=== PATIENT | male | born 1950 | race Caucasian/White ===

== ENCOUNTER 2017-03-11 13:08 | Outpatient (CLI) | payer MEDICARE ==
[2017-03-11 18:45] LABS: BASOPHILS % (AUTO) 0.3 %; HGB - HEMOGLOBIN 14.5 g/dL (14.0-18.0); LYMPHOCYTES # (AUTO) 0.9 10^3/uL (1.5-3.5); MEAN CORPUSCULAR HEMOGLOBIN 30.9 pg (27.0-31.0); MEAN CORPUSCULAR HGB CONC 32.8 g/dL (32.0-36.0); MEAN CORPUSCULAR VOLUME 94.3 fL (80.0-94.0); MEAN PLATELET VOLUME 10.8 fL (7.4-11.4); MONOCYTES # (AUTO) 0.3 10^3/uL (0.0-1.0); MONOCYTES % (AUTO) 3.3 %; NEUTROPHILS # (AUTO) 8.2 10^3/uL (1.5-6.6); NEUTROPHILS % (AUTO) 86.4 %; PLT - PLATELET COUNT 131 10^3/uL (130-450); RED BLOOD COUNT 4.68 10^6/uL (4.70-6.10); RED CELL DISTRIBUTION WIDTH 13.4 % (12.0-15.0); WHITE BLOOD COUNT 9.5 x10^3/uL (4.8-10.8)
[2017-03-11 19:11] LABS: ALBUMIN 4.3 g/dL (3.2-5.5); ALBUMIN/GLOBULIN RATIO 1.5 (1.0-2.2); BILIRUBIN,TOTAL 1.1 mg/dL (0.2-1.0); CALCIUM 9.2 mg/dL (8.5-10.3); CREATININE 1.4 mg/dL (0.6-1.2); TOTAL PROTEIN 7.2 g/dL (6.7-8.2)
== END 2017-03-11 13:09 | disposition home or self-care (01) ==
LOC: LAB.WCP 13:08
PROVIDERS: ATTEND Physician Assistant Medical
DX: N20.0 Calculus of kidney (principal)
CPT/HCPCS: 36415; 80053; 85025

== ENCOUNTER 2017-03-17 08:00 | Outpatient (CLI) | payer MEDICARE | END 2017-03-17 23:59 | disposition home or self-care (01) | LOC: LAB.WCP 08:00 | PROVIDERS: ATTEND Family Medicine | DX: Z53.9 Procedure and treatment not carried out, unspecified reason (principal) | CPT/HCPCS: 82570; 84133 ==

== ENCOUNTER → 2017-03-17 | Outpatient (CLI) | payer MEDICARE | LOC: LAB.WCP 12:22 | PROVIDERS: ATTEND Family Medicine | DX: N20.0 Calculus of kidney (principal) | CPT/HCPCS: 81599; 82340; 82507; 82570; 83945; 84133; 84300 ==

== ENCOUNTER 2017-03-18 08:00 | Outpatient (CLI) | payer MEDICARE ==
[2017-03-18 19:24] LABS: CALCIUM 8.7 mg/dL (8.5-10.3); CREATININE 1.1 mg/dL (0.6-1.2)
== END 2017-03-18 08:01 | disposition home or self-care (01) ==
LOC: LAB.WCP 08:00
PROVIDERS: ATTEND Family Medicine
DX: N20.0 Calculus of kidney (principal)
CPT/HCPCS: 36415; 80048; 81599; 82340; 82507; 82570; 83945; 84133; 84300

== ENCOUNTER 2017-05-17 23:44 | Outpatient (CLI) | payer MEDICARE | END 2017-05-17 23:45 | disposition home or self-care (01) | LOC: LAB.R 23:44 | PROVIDERS: ATTEND Physician Assistant Medical | DX: N20.0 Calculus of kidney (principal) | CPT/HCPCS: 81599; 82365 ==

== ENCOUNTER 2017-09-04 07:56 | Outpatient (CLI) | payer MEDICARE ==
--- NOTE | 2017-09-04 16:54 | Ultrasound Report ---
Procedure Date: 09/04/2017 Accession Number: [id number] / [id number] Procedure: US - Abdomen Limited CPT Code: FULL RESULT: EXAM: ABDOMEN ULTRASOUND LIMITED, RIGHT UPPER QUADRANT. EXAM DATE: 09/04/2017 08:58 AM. CLINICAL HISTORY: Fatty liver disease. COMPARISON: 01/30/2011. TECHNIQUE: Real-time scanning was performed with static images obtained. FINDINGS: Liver: Diffuse increased echogenicity again demonstrated, consistent with fatty infiltration. 1.6 cm right lobe benign cyst demonstrated. No evidence of mass. Normal size, 16.1 cm. Main portal vein flow: Hepatopetal. Gallbladder: Surgically absent. Biliary System: CBD measures 7.7 mm, previously 7.4. This is likely within normal range given the age and prior cholecystectomy. No definite intrahepatic or extrahepatic ductal dilatation. Other: No free fluid demonstrated. 2.9 cm right lower pole renal simple cyst, previously 2.7 cm. IMPRESSION: 1. No acute abnormality demonstrated. 2. Pattern compatible with diffuse fatty infiltration of the liver redemonstrated. 3. Benign right hepatic and right renal cysts. 4. Status post cholecystectomy. RADIA
== END 2017-09-04 07:57 | disposition home or self-care (01) ==
LOC: DI 07:56
PROVIDERS: ATTEND Family Medicine
DX: K76.0 Fatty (change of) liver, not elsewhere classified (principal); K76.89 Other specified diseases of liver; Q61.01 Congenital single renal cyst
CPT/HCPCS: 76705

== ENCOUNTER 2017-10-28 08:00 | Outpatient (CLI) | payer MEDICARE ==
[2017-10-28 13:17] LABS: ALBUMIN 4.3 g/dL (3.2-5.5); ALBUMIN/GLOBULIN RATIO 1.4 (1.0-2.2); ALKALINE PHOSPHATASE 93 IU/L (42-121); ALT ALANINE AMINOTRANSFERASE 34 IU/L (10-60); AST ASPARTATE AMINOTRANSFERASE 32 IU/L (10-42); BILIRUBIN,TOTAL 1.4 mg/dL (0.2-1.0); BUN - BLOOD UREA NITROGEN 20 mg/dL (6-20); CHOL/HDL RATIO 2.7 (<5.0); CHOLESTEROL 149 mg/dL; CREATININE 1.1 mg/dL (0.6-1.2); GFR - MDRD 67 (>89); HDL CHOLESTEROL 56 mg/dL; LDL CHOLESTEROL,CALCULATED 74 mg/dL; LDL/HDL RATIO 1.3 (<3.6); TOTAL PROTEIN 7.3 g/dL (6.7-8.2); URIC ACID 6.7 mg/dL (2.6-7.2); VLDL CHOLESTEROL 19 mg/dL
[2017-10-28 13:23] LABS: CALCIUM 9.2 mg/dL (8.5-10.3); CARBON DIOXIDE - CO2 29 mmol/L (21-32); CHLORIDE 100 mmol/L (101-111); GLUCOSE 109 mg/dL (70-100); SODIUM 138 mmol/L (135-145)
== END 2017-10-28 08:01 | disposition home or self-care (01) ==
LOC: LAB.WCP 08:00
PROVIDERS: ATTEND Family Medicine
DX: N20.0 Calculus of kidney (principal); E78.5 Hyperlipidemia, unspecified; Z12.5 Encounter for screening for malignant neoplasm of prostate
CPT/HCPCS: 36415; 80053; 80061; 84550; G0103; 83721; 84153

== ENCOUNTER 2018-07-18 09:37 | Outpatient (CLI) | payer MEDICARE ==
--- NOTE | 2018-07-18 11:01 | XRAY Report ---
Reason: KIDNEY STONE Procedure Date: 07/18/2018 Accession Number: [id number] / [id number] Procedure: XR - Abdomen 1 View X-Ray CPT Code: 17253 FULL RESULT: EXAM: ABDOMEN RADIOGRAPHY EXAM DATE: 07/18/2018 09:39 AM. CLINICAL HISTORY: Kidney stone. COMPARISON: None. TECHNIQUE: 1 view. FINDINGS: Bowel Gas Pattern: Within normal limits. No dilated loops. Other: A total of 4 calcific densities are seen in the region corresponding to the left kidney. These range in size from 0.4 to 0.8 cm. IMPRESSION: Suspect left renal calculi as described. RADIA
== END 2018-07-18 09:38 | disposition home or self-care (01) ==
LOC: DI 09:37
PROVIDERS: ATTEND Urology
DX: N20.0 Calculus of kidney (principal)
CPT/HCPCS: 74018

== ENCOUNTER 2018-11-23 08:00 | Outpatient (CLI) | payer MEDICARE ==
[2018-11-23 12:30] LABS: BASOPHILS % (AUTO) 0.6 %; EOSINOPHILS # (AUTO) 0.1 10^3/uL (0.0-0.7); EOSINOPHILS % (AUTO) 1.5 %; HGB - HEMOGLOBIN 13.3 g/dL (14.0-18.0); LYMPHOCYTES # (AUTO) 2.1 10^3/uL (1.5-3.5); LYMPHOCYTES % (AUTO) 32.2 %; MEAN CORPUSCULAR HEMOGLOBIN 32.4 pg (27.0-31.0); MEAN CORPUSCULAR HGB CONC 32.4 g/dL (32.0-36.0); MEAN PLATELET VOLUME 11.9 fL (7.4-11.4); MONOCYTES # (AUTO) 0.4 10^3/uL (0.0-1.0); MONOCYTES % (AUTO) 6.2 %; NEUTROPHILS # (AUTO) 3.9 10^3/uL (1.5-6.6); NEUTROPHILS % (AUTO) 58.9 %; PLT - PLATELET COUNT 147 10^3/uL (130-450); RED CELL DISTRIBUTION WIDTH 13.2 % (12.0-15.0); WHITE BLOOD COUNT 6.6 x10^3/uL (4.8-10.8)
[2018-11-23 12:35] LABS: ALBUMIN/GLOBULIN RATIO 1.2 (1.0-2.2); ALKALINE PHOSPHATASE 115 IU/L (42-121); ALT ALANINE AMINOTRANSFERASE 43 IU/L (10-60); AST ASPARTATE AMINOTRANSFERASE 41 IU/L (10-42); BUN - BLOOD UREA NITROGEN 16 mg/dL (6-20); CALCIUM 8.7 mg/dL (8.5-10.3); CARBON DIOXIDE - CO2 30 mmol/L (21-32); CHLORIDE 106 mmol/L (101-111); CHOL/HDL RATIO 2.3 (<5.0); CHOLESTEROL 140 mg/dL; GFR - MDRD 74 (>89); GLUCOSE 131 mg/dL (70-100); HDL CHOLESTEROL 62 mg/dL; LDL CHOLESTEROL,CALCULATED 63 mg/dL; SODIUM 142 mmol/L (135-145); TOTAL PROTEIN 7.3 g/dL (6.7-8.2); URIC ACID 4.5 mg/dL (2.6-7.2); VLDL CHOLESTEROL 15 mg/dL
== END 2018-11-23 23:59 | disposition home or self-care (01) ==
LOC: LAB.WCP 08:00
PROVIDERS: ATTEND Family Medicine
DX: N20.0 Calculus of kidney (principal); E88.81 Metabolic syndrome and other insulin resistance; K76.0 Fatty (change of) liver, not elsewhere classified; M10.9 Gout, unspecified; E78.5 Hyperlipidemia, unspecified
CPT/HCPCS: 36415; 80053; 80061; 83721; 84443; 84550; 85025

== ENCOUNTER 2020-01-30 08:26 | Outpatient (CLI) | payer MEDICARE ==
[2020-01-30 13:45] LABS: BASOPHILS % (AUTO) 0.5 %; EOSINOPHILS # (AUTO) 0.1 10^3/uL (0.0-0.7); HGB - HEMOGLOBIN 12.8 g/dL (14.0-18.0); LYMPHOCYTES % (AUTO) 30.5 %; MEAN CORPUSCULAR HEMOGLOBIN 31.5 pg (27.0-31.0); MEAN CORPUSCULAR HGB CONC 31.9 g/dL (32.0-36.0); MEAN CORPUSCULAR VOLUME 98.8 fL (80.0-94.0); MEAN PLATELET VOLUME 12.2 fL (7.4-11.4); MONOCYTES # (AUTO) 0.4 10^3/uL (0.0-1.0); MONOCYTES % (AUTO) 5.7 %; NEUTROPHILS % (AUTO) 60.7 %; PLT - PLATELET COUNT 137 10^3/uL (130-450); RED BLOOD COUNT 4.06 10^6/uL (4.70-6.10); RED CELL DISTRIBUTION WIDTH 12.9 % (12.0-15.0); WHITE BLOOD COUNT 6.6 x10^3/uL (4.8-10.8)
[2020-01-30 14:15] LABS: ALBUMIN 3.9 g/dL (3.2-5.5); ALBUMIN/GLOBULIN RATIO 1.2 (1.0-2.2); ALKALINE PHOSPHATASE 115 IU/L (42-121); ALT ALANINE AMINOTRANSFERASE 32 IU/L (10-60); AST ASPARTATE AMINOTRANSFERASE 32 IU/L (10-42); BILIRUBIN,TOTAL 0.9 mg/dL (0.2-1.0); BUN - BLOOD UREA NITROGEN 17 mg/dL (6-20); CARBON DIOXIDE - CO2 23 mmol/L (21-32); CHLORIDE 108 mmol/L (101-111); CHOL/HDL RATIO 2.2 (<5.0); CHOLESTEROL 138 mg/dL; CREATININE,URINE 122.3 mg/dL; GLUCOSE 156 mg/dL (70-100); HDL CHOLESTEROL 63 mg/dL; LDL CHOLESTEROL,CALCULATED 62 mg/dL; MICROALBUM/CREATININE RATIO,UR 4.1 ug/mg (<30.0); MICROALBUMIN,URINE 0.5 mg/dL (0-300.0); SODIUM 139 mmol/L (135-145); TOTAL PROTEIN 7.2 g/dL (6.7-8.2); VLDL CHOLESTEROL 13 mg/dL
[2020-01-30 14:26] LABS: HEMOGLOBIN A1c% 7.8 % (4.27-6.07)
== END 2020-01-30 23:59 | disposition home or self-care (01) ==
LOC: LAB.WCP 08:26
PROVIDERS: ATTEND Internal Medicine
DX: K76.0 Fatty (change of) liver, not elsewhere classified (principal); E88.81 Metabolic syndrome and other insulin resistance; Z12.5 Encounter for screening for malignant neoplasm of prostate; E78.5 Hyperlipidemia, unspecified
CPT/HCPCS: 36415; 80053; 80061; 82043; 82570; 83036; 84443; 85025; G0103; 83721; 84153

== ENCOUNTER 2020-05-01 08:00 | Outpatient (CLI) | payer MEDICARE ==
[2020-05-01 11:57] LABS: BILIRUBIN,URINE NEGATIVE (NEGATIVE); GLUCOSE, URINE (UA) NEGATIVE (NEGATIVE); KETONES,URINE (UA) NEGATIVE (NEGATIVE); LEUKOCYTE ESTERASE, URINE NEGATIVE (NEGATIVE); NITRITE,URINE NEGATIVE (NEGATIVE); OCCULT BLOOD,URINE NEGATIVE (NEGATIVE); PROTEIN,URINE NEGATIVE (NEGATIVE); UROBILINOGEN,URINE 0.2 (NORMAL) E.U./dL (NORMAL)
[2020-05-01 12:15] LABS: CLARITY,URINE CLEAR (CLEAR); CREATININE,URINE 148.8 mg/dL; MICROALBUMIN,URINE 0.6 mg/dL (0-300.0)
[2020-05-01 12:32] LABS: ESTIMATED AVERAGE GLUCOSE 148 mg/dL (70-100); HEMOGLOBIN A1c% 6.8 % (4.27-6.07)
[2020-05-01 12:39] LABS: PSA FREE 0.22 ng/mL (0.16-2.81); PSA TOTAL 2.51 ng/mL (0.000-2.000)
[2020-05-01 12:40] LABS: BUN - BLOOD UREA NITROGEN 16 mg/dL (6-20); CALCIUM 8.9 mg/dL (8.5-10.3); CARBON DIOXIDE - CO2 23 mmol/L (21-32); CHLORIDE 105 mmol/L (101-111); CHOL/HDL RATIO 2.3 (<5.0); CHOLESTEROL 130 mg/dL; CREATININE 0.8 mg/dL (0.6-1.2); GFR - MDRD 96 (>89); GLUCOSE 135 mg/dL (70-100); HDL CHOLESTEROL 56 mg/dL; LDL CHOLESTEROL,CALCULATED 58 mg/dL; POTASSIUM 3.8 mmol/L (3.5-5.0); SODIUM 136 mmol/L (135-145); TRIGLYCERIDES 79 mg/dL; URIC ACID 4.8 mg/dL (2.6-7.2); VLDL CHOLESTEROL 16 mg/dL
[2020-05-01 12:47] LABS: BACTERIA,URINE None Seen /HPF (None Seen); RBC,URINE 0-5 /HPF (0-5); SQUAMOUS EPITHELIAL CELL,UR NONE SEEN (<= Few); WBC,URINE 0-3 /HPF (0-3)
== END 2020-05-01 23:59 | disposition home or self-care (01) ==
LOC: LAB.WCP 08:00
PROVIDERS: ATTEND Internal Medicine
DX: E11.65 Type 2 diabetes mellitus with hyperglycemia (principal); N20.0 Calculus of kidney; R97.20 Elevated prostate specific antigen [PSA]
CPT/HCPCS: 36415; 80048; 80061; 81001; 82043; 82570; 83036; 83721; 84153; 84154; 84550; 87086

== ENCOUNTER 2020-12-23 09:02 | Outpatient (CLI) | payer MEDICARE ==
[2020-12-23 12:16] LABS: PSA FREE 0.29 ng/mL (0.16-2.81)
[2020-12-23 12:17] LABS: PSA TOTAL 3.26 ng/mL (0.000-2.000)
[2020-12-23 12:35] LABS: BUN - BLOOD UREA NITROGEN 15 mg/dL (6-20); CALCIUM 8.8 mg/dL (8.5-10.3); CARBON DIOXIDE - CO2 27 mmol/L (21-32); CHLORIDE 102 mmol/L (101-111); CHOL/HDL RATIO 2.2 (<5.0); CHOLESTEROL 131 mg/dL; CREATININE 0.9 mg/dL (0.6-1.2); GFR - MDRD 83 (>89); GLUCOSE 165 mg/dL (70-100); HDL CHOLESTEROL 59 mg/dL; LDL CHOLESTEROL,CALCULATED 54 mg/dL; LDL/HDL RATIO 0.9 (<3.6); POTASSIUM 4.6 mmol/L (3.5-5.0); SODIUM 139 mmol/L (135-145); TRIGLYCERIDES 90 mg/dL; URIC ACID 3.4 mg/dL (2.6-7.2); VLDL CHOLESTEROL 18 mg/dL
[2020-12-23 12:39] LABS: ESTIMATED AVERAGE GLUCOSE 174 mg/dL (70-100); HEMOGLOBIN A1c% 7.7 % (4.27-6.07)
[2020-12-23 12:42] LABS: CREATININE,URINE 86.4 mg/dL; MICROALBUM/CREATININE RATIO,UR 4.6 ug/mg (<30.0); MICROALBUMIN,URINE 0.4 mg/dL (0-300.0)
== END 2020-12-23 09:03 | disposition home or self-care (01) ==
LOC: LAB.N 09:02
PROVIDERS: ATTEND Internal Medicine
DX: E11.65 Type 2 diabetes mellitus with hyperglycemia (principal); R97.20 Elevated prostate specific antigen [PSA]; M10.9 Gout, unspecified
CPT/HCPCS: 36415; 80048; 80061; 82043; 82570; 83036; 83721; 84153; 84154; 84550

== ENCOUNTER 2021-04-30 08:43 | Outpatient (CLI) | payer MEDICARE ==
[2021-04-30 13:36] LABS: BUN - BLOOD UREA NITROGEN 15 mg/dL (6-20); CALCIUM 8.8 mg/dL (8.5-10.3); CARBON DIOXIDE - CO2 27 mmol/L (21-32); CHLORIDE 102 mmol/L (101-111); CHOLESTEROL 131 mg/dL; CREATININE 0.9 mg/dL (0.6-1.2); GFR - MDRD 83 (>89); GLUCOSE 150 mg/dL (70-100); HDL CHOLESTEROL 64 mg/dL; LDL CHOLESTEROL,CALCULATED 56 mg/dL; LDL/HDL RATIO 0.9 (<3.6); POTASSIUM 3.8 mmol/L (3.5-5.0); SODIUM 139 mmol/L (135-145); TRIGLYCERIDES 55 mg/dL; VLDL CHOLESTEROL 11 mg/dL
[2021-04-30 13:44] LABS: ESTIMATED AVERAGE GLUCOSE 160 mg/dL (70-100); HEMOGLOBIN A1c% 7.2 % (4.27-6.07)
== END 2021-04-30 08:44 | disposition home or self-care (01) ==
LOC: LAB.N 08:43
PROVIDERS: ATTEND Internal Medicine
DX: E11.65 Type 2 diabetes mellitus with hyperglycemia (principal); E78.5 Hyperlipidemia, unspecified; R97.20 Elevated prostate specific antigen [PSA]
CPT/HCPCS: 36415; 80048; 80061; 83036; 83721; 84153

== ENCOUNTER 2021-10-14 12:52 | Outpatient (CLI) | payer MEDICARE | END 2021-10-14 12:53 | disposition home or self-care (01) | LOC: LAB.N 12:52 | PROVIDERS: ATTEND Urology | DX: R97.20 Elevated prostate specific antigen [PSA] (principal); Z12.5 Encounter for screening for malignant neoplasm of prostate | CPT/HCPCS: 36415; G0103; 84153 ==

== ENCOUNTER 2022-06-16 15:45 | Outpatient (CLI) | payer MEDICARE ==
[2022-06-16 21:07] LABS: BASOPHILS % (AUTO) 0.7 %; EOSINOPHILS # (AUTO) 0.1 10^3/uL (0.0-0.7); HCT - HEMATOCRIT 33.8 % (42.0-52.0); HGB - HEMOGLOBIN 10.7 g/dL (14.0-18.0); LYMPHOCYTES # (AUTO) 1.4 10^3/uL (1.5-3.5); LYMPHOCYTES % (AUTO) 33.3 %; MEAN CORPUSCULAR HEMOGLOBIN 32.2 pg (27.0-31.0); MEAN CORPUSCULAR HGB CONC 31.7 g/dL (32.0-36.0); MEAN CORPUSCULAR VOLUME 101.8 fL (80.0-94.0); MEAN PLATELET VOLUME 12.5 fL (7.4-11.4); MONOCYTES # (AUTO) 0.4 10^3/uL (0.0-1.0); MONOCYTES % (AUTO) 8.8 %; NEUTROPHILS # (AUTO) 2.3 10^3/uL (1.5-6.6); PLT - PLATELET COUNT 94 10^3/uL (130-450); RED BLOOD COUNT 3.32 10^6/uL (4.70-6.10); RED CELL DISTRIBUTION WIDTH 15.3 % (12.0-15.0); WHITE BLOOD COUNT 4.1 x10^3/uL (4.8-10.8)
[2022-06-16 21:17] LABS: ALBUMIN/GLOBULIN RATIO 1.2 (1.0-2.2); BILIRUBIN,TOTAL 0.8 mg/dL (0.2-1.0); CALCIUM 8.4 mg/dL (8.5-10.3); CREATININE 0.9 mg/dL (0.6-1.2); POTASSIUM 3.8 mmol/L (3.5-5.0); TOTAL PROTEIN 5.6 g/dL (6.7-8.2)
== END 2022-06-16 16:00 | disposition home or self-care (01) ==
LOC: LAB.N 15:45
PROVIDERS: ATTEND Registered Nurse
DX: R60.9 Edema, unspecified (principal)
CPT/HCPCS: 36415; 80053; 85025

== ENCOUNTER 2022-06-18 17:29 | Outpatient (CLI) | payer MEDICARE ==
[2022-06-18 20:42] LABS: BASOPHILS % (AUTO) 0.4 %; EOSINOPHILS # (AUTO) 0.1 10^3/uL (0.0-0.7); EOSINOPHILS % (AUTO) 1.5 %; HCT - HEMATOCRIT 33.3 % (42.0-52.0); HGB - HEMOGLOBIN 10.6 g/dL (14.0-18.0); LYMPHOCYTES # (AUTO) 1.4 10^3/uL (1.5-3.5); MEAN CORPUSCULAR HGB CONC 31.8 g/dL (32.0-36.0); MEAN CORPUSCULAR VOLUME 100.6 fL (80.0-94.0); MEAN PLATELET VOLUME 11.7 fL (7.4-11.4); MONOCYTES # (AUTO) 0.5 10^3/uL (0.0-1.0); MONOCYTES % (AUTO) 10.1 %; NEUTROPHILS # (AUTO) 2.7 10^3/uL (1.5-6.6); NEUTROPHILS % (AUTO) 57.6 %; PLT - PLATELET COUNT 99 10^3/uL (130-450); RED BLOOD COUNT 3.31 10^6/uL (4.70-6.10); RED CELL DISTRIBUTION WIDTH 15.2 % (12.0-15.0); WHITE BLOOD COUNT 4.7 x10^3/uL (4.8-10.8)
[2022-06-18 20:50] LABS: ALBUMIN 3.3 g/dL (3.2-5.5); ALBUMIN/GLOBULIN RATIO 1.2 (1.0-2.2); BILIRUBIN,TOTAL 1.1 mg/dL (0.2-1.0); CALCIUM 8.4 mg/dL (8.5-10.3); POTASSIUM 3.4 mmol/L (3.5-5.0); TOTAL PROTEIN 6.1 g/dL (6.7-8.2)
[2022-06-18 21:02] LABS: PSA FREE 0.282 ng/mL (0.16-2.81)
[2022-06-18 21:03] LABS: ESTIMATED AVERAGE GLUCOSE 180 mg/dL (70-100); HEMOGLOBIN A1c% 7.9 % (4.27-6.07); PSA TOTAL 3.614 ng/mL (0.000-2.000)
== END 2022-06-18 17:30 | disposition home or self-care (01) ==
LOC: LAB.N 17:29
PROVIDERS: ATTEND Internal Medicine
DX: E11.65 Type 2 diabetes mellitus with hyperglycemia (principal); R97.20 Elevated prostate specific antigen [PSA]; M10.9 Gout, unspecified; R60.9 Edema, unspecified
CPT/HCPCS: 36415; 80053; 81001; 82043; 82570; 83036; 84153; 84154; 85025; 87086

== ENCOUNTER 2022-07-09 08:00 | Outpatient (CLI) | payer MEDICARE ==
[2022-07-09 18:42] LABS: FECAL OCCULT BLOOD (FIT) POSITIVE (NEGATIVE)
== END 2022-07-09 23:59 | disposition home or self-care (01) ==
LOC: LAB.WCP 08:00
PROVIDERS: ATTEND Internal Medicine
DX: Z12.11 Encounter for screening for malignant neoplasm of colon (principal)
CPT/HCPCS: 82274

== ENCOUNTER 2022-07-14 14:35 | Outpatient (CLI) | payer MEDICARE ==
[2022-07-14 17:58] LABS: BILIRUBIN,URINE NEGATIVE (NEGATIVE); GLUCOSE, URINE (UA) 250 mg/dL (NEGATIVE); KETONES,URINE (UA) TRACE mg/dL (NEGATIVE); LEUKOCYTE ESTERASE, URINE NEGATIVE (NEGATIVE); NITRITE,URINE NEGATIVE (NEGATIVE); OCCULT BLOOD,URINE NEGATIVE (NEGATIVE); PROTEIN,URINE NEGATIVE (NEGATIVE); UROBILINOGEN,URINE 0.2 (NORMAL) E.U./dL (NORMAL)
[2022-07-14 18:16] LABS: BASOPHILS % (AUTO) 0.4 %; EOSINOPHILS # (AUTO) 0.1 10^3/uL (0.0-0.7); EOSINOPHILS % (AUTO) 1.7 %; HCT - HEMATOCRIT 33.3 % (42.0-52.0); HGB - HEMOGLOBIN 10.9 g/dL (14.0-18.0); LYMPHOCYTES # (AUTO) 1.1 10^3/uL (1.5-3.5); LYMPHOCYTES % (AUTO) 23.9 %; MEAN CORPUSCULAR HEMOGLOBIN 32.6 pg (27.0-31.0); MEAN CORPUSCULAR HGB CONC 32.7 g/dL (32.0-36.0); MEAN CORPUSCULAR VOLUME 99.7 fL (80.0-94.0); MEAN PLATELET VOLUME 12.6 fL (7.4-11.4); MONOCYTES # (AUTO) 0.3 10^3/uL (0.0-1.0); MONOCYTES % (AUTO) 5.8 %; NEUTROPHILS # (AUTO) 3.2 10^3/uL (1.5-6.6); PLT - PLATELET COUNT 100 10^3/uL (130-450); RED BLOOD COUNT 3.34 10^6/uL (4.70-6.10); RED CELL DISTRIBUTION WIDTH 14.4 % (12.0-15.0); WHITE BLOOD COUNT 4.7 x10^3/uL (4.8-10.8)
[2022-07-14 18:16] LABS: BACTERIA,URINE None Seen /HPF (None Seen); CLARITY,URINE CLEAR (CLEAR); RBC,URINE None Seen /HPF (0-5); SQUAMOUS EPITHELIAL CELL,UR RARE Squamous (<= Few); WBC,URINE 0-3 /HPF (0-3)
[2022-07-14 18:27] LABS: CALCIUM 9.1 mg/dL (8.5-10.3); CREATININE 1.2 mg/dL (0.6-1.2); FERRITIN 55.2 ng/mL (23.9-336.2); POTASSIUM 3.7 mmol/L (3.5-5.0)
[2022-07-14 18:30] LABS: FOLATE 13.7 ng/mL (5.90 - >24.8)
[2022-07-16 13:02] LABS: PATHOLOGIST SLIDE COMMENTS SEE SEPARATE REPORT
== END 2022-07-14 14:36 | disposition home or self-care (01) ==
LOC: LAB.N 14:35
PROVIDERS: ATTEND Physician Assistant
DX: R60.9 Edema, unspecified (principal); D61.818 Other pancytopenia
CPT/HCPCS: 36415; 80048; 81001; 82607; 82728; 82746; 83010; 83540; 83615; 84466; 85025; 87086

== ENCOUNTER 2022-10-14 12:42 | Outpatient (CLI) | payer MEDICARE ==
--- NOTE | 2022-10-14 14:41 | XRAY Report ---
PROCEDURE: Abdomen 1 View X-Ray INDICATIONS: KIDNEY STONE TECHNIQUE: One view of the abdomen acquired. COMPARISON: Abdominal radiograph 10/07/2021. FINDINGS: Surgical changes and devices: None. Bowel: Bowel gas pattern is normal. Soft tissues: Subtle radiodensity projecting over the superior pole of the left kidney measures 5 mm . Subtle radiodensity projecting over the left inferior pole measures approximately 6 mm. Right upper quadrant surgical clips are present. Visualized solid organ contours appear normal in size. Bones: No suspicious bony lesions. IMPRESSION: Probable left nephrolithiasis with superior pole stone measuring 5 mm and inferior pole stone measuri ng approximately 6 mm Reviewed by: Chapis Gama MD on 10/14/2022 2:40 PM PDT Approved by: Chapis Gama MD on 10/14/2022 2:40 PM PDT Station ID: [id number]
== END 2022-10-14 12:43 | disposition home or self-care (01) ==
LOC: DI 12:42
PROVIDERS: ATTEND Physician Assistant Medical
DX: N20.0 Calculus of kidney (principal)

== ENCOUNTER 2022-11-25 17:16 | Emergency (ER) | payer MEDICARE ==
[2022-11-25 18:35] LABS: BASOPHILS % (AUTO) 0.4 %; EOSINOPHILS # (AUTO) 0.1 10^3/uL (0.0-0.7); EOSINOPHILS % (AUTO) 0.9 %; HCT - HEMATOCRIT 36.6 % (42.0-52.0); HGB - HEMOGLOBIN 11.9 g/dL (14.0-18.0); LYMPHOCYTES % (AUTO) 10.5 %; MEAN CORPUSCULAR HEMOGLOBIN 32.2 pg (27.0-31.0); MEAN CORPUSCULAR HGB CONC 32.5 g/dL (32.0-36.0); MEAN CORPUSCULAR VOLUME 98.9 fL (80.0-94.0); MEAN PLATELET VOLUME 11.5 fL (7.4-11.4); MONOCYTES # (AUTO) 0.5 10^3/uL (0.0-1.0); NEUTROPHILS # (AUTO) 7.9 10^3/uL (1.5-6.6); NEUTROPHILS % (AUTO) 82.8 %; PLT - PLATELET COUNT 175 10^3/uL (130-450); WHITE BLOOD COUNT 9.5 x10^3/uL (4.8-10.8)
[2022-11-25 18:44] LABS: BILIRUBIN,URINE NEGATIVE (NEGATIVE); GLUCOSE, URINE (UA) NEGATIVE (NEGATIVE); KETONES,URINE (UA) NEGATIVE (NEGATIVE); LEUKOCYTE ESTERASE, URINE NEGATIVE (NEGATIVE); NITRITE,URINE NEGATIVE (NEGATIVE); OCCULT BLOOD,URINE NEGATIVE (NEGATIVE); PROTEIN,URINE TRACE mg/dL (NEGATIVE); UROBILINOGEN,URINE 0.2 (NORMAL) E.U./dL (NORMAL)
[2022-11-25 18:46] LABS: CLARITY,URINE CLEAR (CLEAR)
[2022-11-25 18:58] LABS: ALBUMIN 4.2 g/dL (3.2-5.5); ALBUMIN/GLOBULIN RATIO 1.4 (1.0-2.2); BILIRUBIN,TOTAL 1.5 mg/dL (0.2-1.0); CALCIUM 9.4 mg/dL (8.5-10.3); POTASSIUM 3.8 mmol/L (3.5-4.5); TOTAL PROTEIN 7.3 g/dL (6.4-8.9)
--- NOTE | 2022-11-25 19:36 | ED Physician Documentation ---
PD HPI ABD PAIN - Stated complaint Stated Complaint: R SIDE PX - Chief complaint Chief Complaint: Abd Pain - History obtained from History obtained from: Patient - History of Present Illness Quality: Aching, Pain Location: Other (R sided) Associated symptoms: Melena. No: Fever, Nausea, Vomiting, Hematemesis, Constipation, Hematochezia, Dysuria, Hematuria, Chest pain, Dizzy - Additional information Additional information: 72-year-old male presents to the emergency department with right-sided abdominal pain status post colonoscopy earlier today at [facility] with polypectomy. He states he ate [employer] on the way home and developed abdominal pain. Has had some dark blood in the stool as well. 2 small bowel movements. Not on blood thinners. The pain is worse with movement, better with rest. Review of Systems Constitutional: denies: Fever, Chills Nose: denies: Rhinorrhea / runny nose, Congestion GI: denies: Nausea : denies: Dysuria, Frequency, Hesitancy Skin: denies: Rash PD PAST MEDICAL HISTORY - Past Medical History Past Medical History: Yes Cardiovascular: Hypertension, High cholesterol Endocrine/Autoimmune: Type 2 diabetes - Past Surgical History General: Appendectomy Cardiovascular: CABG - Present Medications Home Medications: Ambulatory Orders Medication Instructions Recorded Confirmed Aspirin [Aspirin Regimen] 81 mg PO DAILY 10/02/22 11/20/22 Atorvastatin [Lipitor] 10 mg PO DAILY 10/02/22 11/20/22 Mirtazapine 7.5 mg PO DAILY 10/02/22 11/20/22 Potassium Citrate [Potassium 10 meq PO BID 10/02/22 11/20/22 Citrate ER] Tamsulosin [Flomax] 0.4 mg PO DAILY 10/02/22 11/20/22 allopurinoL [Allopurinol] 300 mg PO DAILY 10/02/22 11/20/22 hydroCHLOROthiazide [Hydrodiuril] 25 mg PO DAILY 10/02/22 11/20/22 metFORMIN [Glucophage] 500 mg PO BIDWM 10/02/22 11/20/22 - Allergies Allergies/Adverse Reactions: Allergies Allergy/AdvReac Type Severity Reaction Status Date / Time prednisone Allergy Unknown Verified 11/25/22 17:54 PD ED PE NORMAL - Vitals Vital signs reviewed: Yes - General General: Alert and oriented X 3, No acute distress - HEENT HEENT: Moist mucous membranes - Neck Neck: Supple, no meningeal sign - Cardiac Cardiac: RRR - Respiratory Respiratory: Clear bilaterally - Abdomen Abdomen: Soft, Non distended, Other (mild TTP R sided mid abdomen. no peritoneal signs.) - Back Back: No CVA TTP, No spinal TTP - Derm Derm: Warm and dry - Neuro Neuro: Alert and oriented X 3 - Psych Psych: Normal mood, Normal affect Results - Vitals Vitals: Vital Signs - 24 hr 11/25/22 21:00 Heart Rate 86 Respiratory 16 Rate Blood Pressure 129/57 L O2 Saturation 92 Oxygen O2 Source Room air - Labs Labs: Laboratory Tests 11/25/22 11/25/22 11/25/22 18:25 18:31 18:31 WBC 9.5 RBC 3.70 L Hgb 11.9 L Hct 36.6 L MCV 98.9 H MCH 32.2 H MCHC 32.5 RDW 14.0 Plt Count 175 MPV 11.5 H Neut # (Auto) 7.9 H Lymph # (Auto) 1.0 L Radford # (Auto) 0.5 Eos # (Auto) 0.1 Baso # (Auto) 0.0 Absolute Nucleated RBC 0.00 Nucleated RBC % 0.0 Sodium 138 Potassium 3.8 Chloride 102 Carbon Dioxide 29 Anion Gap 7.0 BUN 16 Creatinine 1.0 Estimated GFR (MDRD) 73 L Glucose 211 H Calcium 9.4 Total Bilirubin 1.5 H AST 26 ALT 20 Alkaline Phosphatase 191 H Total Protein 7.3 Albumin 4.2 Globulin 3.1 Albumin/Globulin Ratio 1.4 Lipase 83 H Urine Color DARK YELLOW Urine Clarity CLEAR Urine pH 6.0 Ur Specific Armstrong 1.025 Urine Protein TRACE Urine Glucose (UA) NEGATIVE Urine Ketones NEGATIVE Urine Occult Blood NEGATIVE Urine Nitrite NEGATIVE Urine Bilirubin NEGATIVE Urine Urobilinogen 0.2 (NORMAL) Ur Leukocyte Esterase NEGATIVE Ur Microscopic Review NOT INDICATED Urine Culture Comments NOT INDICATED - Rads (name of study) CT abd pelvis Relevant Findings:: Final report received, See rad report PD Medical Decision Making - ED course Complexity details: reviewed results, re-evaluated patient, considered frank abraham, d/w patient, d/w family ED course: Patient with abdominal pain status post colonoscopy today. CT scan was performed to rule out perforation. There is no evidence of perforation or free air. No significant laboratory abnormalities. Has a recent diagnosis of liver cirrhosis. Patient is well appearing, non toxic. No emergency medical condition at this time. We will have him follow up with his doctor for further care.Patient counseled regarding signs and symptoms for which I believe an urgent re- evaluation would be necessary. Patient with good understanding of and agreement to plan and is comfortable going home at this time. This document was made in part using voice recognition software. While efforts are made to proofread this document, sound alike and grammatical errors may occur. Departure - Departure Disposition: 01 Home, Self Care Clinical Impression: Abdominal pain Qualifiers: Abdominal location: unspecified location Qualified Code(s): R10.9 - Unspecified abdominal pain Condition: Good Instructions: ED Abdominal Pain Unkn Cause Male Follow-Up: Eric Irving MD [Primary Care Provider] - Within 1 week Comments: Your CT scan does not show any evidence of perforation or abscess. Your laboratory testing does not show any acute abnormalities. This pain should i mprove over the next 24 hours. Please return if you worsen or follow-up with your doctor for further care. PROCEDURE: ABDOMEN/PELVIS W INDICATIONS: R sided abd pain s/p colonoscopy CONTRAST: 100mL Omni 300 TECHNIQUE: After the administration of IV contrast, 5 mm thick sections acquired from the diaphragms to the symphysis. 5 mm thick coronal and sagittal reformats were acquired. For radiation dose reduction, the following was used: automated exposure control, adjustment of mA and/or kV according to patient size. COMPARISON: Ultrasound of abdomen dated 11/13/2022 FINDINGS: Image quality: Excellent. Lung bases and heart: Bilateral lung bases are clear. Heart size is enlarged, no pericardial effusion.. Liver: Lobulated liver contour is seen. Well-circumscribed 1.1 cm hypodensity involving right hepatic dome series 2 image 6. Subtle hypodense area involving inferior aspect of right hepatic lobe and left hepatic lobe medial segment is seen series 2 image 21 and measures approximately 2.7 x 2.3 cm in size.. Gallbladder and biliary tree: Gallbladder is surgically absent. No gross biliary ductal dilatation. Spleen: There is splenomegaly, no discrete splenic lesion.. Pancreas: No pancreatic ductal dilation. Adrenals: No adrenal nodule. Kidneys and ureters: No hydronephrosis. Small bilateral nonobstructing renal calculi are seen measures up to 5 mm in size in midpole of left kidney and 5 mm in size in upper pole of right kidney. 1.4 cm left renal cyst is seen. No solid mass. Bowel and peritoneum: There is no evidence of bowel obstruction. Appendix is surgically absent. Wall thickening and edema involving ascending colon with adjacent pericolonic fat stranding is seen. No abnormal small bowel wall thickening. Sigmoid diverticulosis is seen without sigmoid colon wall thickening or pericolonic fat stranding. No abscess collection. No free fluid of free air. Lymph nodes: No central or retroperitoneal adenopathy. Vessels: No infrarenal aortic aneurysm.. Moderate atherosclerotic calcifications are noted in abdominal aorta. Esophageal varices are seen. Varicosities also noted near splenic hilum and in anterior aspect of upper abdomen. PELVIS Reproductive organs: Unremarkable. Bladder: No abnormal wall thickening, accounting for underdistension. Pelvic lymph nodes: No pelvic adenopathy by size criteria. Bones: No aggressive osseous abnormality. Subacute to chronic appearing superior endplate compression deformity at L4 level is seen with up to 40% loss of L4 vertebral body heights. Degenerative disc disease throughout lower thoracic and lumbar spine is seen. Other: No significant ventral or inguinal hernia. IMPRESSION: 1. Right-sided colonic wall thickening particularly involving ileocecal junction and cecum. Likely prior appendectomy. No abscess collection. No free fluid of free air. Finding is concerning for right-sided colitis. 2. Sigmoid diverticulosis without CT evidence of acute diverticulitis. No bowel obstruction. 3. Cirrhotic appearing liver with varicosities as above. Subtle hypodensity in right hepatic dome and questionable hypodense area involving inferior aspect of right and left hepatic lobe. Dedicated MRI of liver can be done for further evaluation of this region as an outpatient. 4. Bilateral nonobstructing renal calculi. No hydronephrosis or hydroureter. 5. Splenomegaly. No discrete splenic lesion. 6. Subacute to chronic appearing superior endplate compression deformity at L4 level. Forms: PCP List Discharge Date/Time: 11/25/22 21:00
--- NOTE | 2022-11-25 20:42 | CT Report ---
PROCEDURE: ABDOMEN/PELVIS W INDICATIONS: R sided abd pain s/p colonoscopy CONTRAST: 100mL Omni 300 TECHNIQUE: After the administration of IV contrast, 5 mm thick sections acquired from the diaphragms to the symp hysis. 5 mm thick coronal and sagittal reformats were acquired. For radiation dose reduction, the f ollowing was used: automated exposure control, adjustment of mA and/or kV according to patient size. COMPARISON: Ultrasound of abdomen dated 11/13/2022 FINDINGS: Image quality: Excellent. Lung bases and heart: Bilateral lung bases are clear. Heart size is enlarged, no pericardial effusion .. Liver: Lobulated liver contour is seen. Well-circumscribed 1.1 cm hypodensity involving right hepatic dome series 2 image 6. Subtle hypodense area involving inferior aspect of right hepatic lobe and lef t hepatic lobe medial segment is seen series 2 image 21 and measures approximately 2.7 x 2.3 cm in si ze.. Gallbladder and biliary tree: Gallbladder is surgically absent. No gross biliary ductal dilatation. Spleen: There is splenomegaly, no discrete splenic lesion.. Pancreas: No pancreatic ductal dilation. Adrenals: No adrenal nodule. Kidneys and ureters: No hydronephrosis. Small bilateral nonobstructing renal calculi are seen measure s up to 5 mm in size in midpole of left kidney and 5 mm in size in upper pole of right kidney. 1.4 cm left renal cyst is seen. No solid mass. Bowel and peritoneum: There is no evidence of bowel obstruction. Appendix is surgically absent. Wall thickening and edema involving ascending colon with adjacent pericolonic fat stranding is seen. No ab normal small bowel wall thickening. Sigmoid diverticulosis is seen without sigmoid colon wall thicken ing or pericolonic fat stranding. No abscess collection. No free fluid of free air. Lymph nodes: No central or retroperitoneal adenopathy. Vessels: No infrarenal aortic aneurysm.. Moderate atherosclerotic calcifications are noted in abdomin al aorta. Esophageal varices are seen. Varicosities also noted near splenic hilum and in anterior asp ect of upper abdomen. PELVIS Reproductive organs: Unremarkable. Bladder: No abnormal wall thickening, accounting for underdistension. Pelvic lymph nodes: No pelvic adenopathy by size criteria. Bones: No aggressive osseous abnormality. Subacute to chronic appearing superior endplate compression deformity at L4 level is seen with up to 40% loss of L4 vertebral body heights. Degenerative disc di sease throughout lower thoracic and lumbar spine is seen. Other: No significant ventral or inguinal hernia. IMPRESSION: 1. Right-sided colonic wall thickening particularly involving ileocecal junction and cecum. Likely pr ior appendectomy. No abscess collection. No free fluid of free air. Finding is concerning for right-s ided colitis. 2. Sigmoid diverticulosis without CT evidence of acute diverticulitis. No bowel obstruction. 3. Cirrhotic appearing liver with varicosities as above. Subtle hypodensity in right hepatic dome and questionable hypodense area involving inferior aspect of right and left hepatic lobe. Dedicated MRI of liver can be done for further evaluation of this region as an outpatient. 4. Bilateral nonobstructing renal calculi. No hydronephrosis or hydroureter. 5. Splenomegaly. No discrete splenic lesion. 6. Subacute to chronic appearing superior endplate compression deformity at L4 level. Reviewed by: Carlos Kelly MD on 11/25/2022 8:41 PM PDT Approved by: Carlos Kelly MD on 11/25/2022 8:41 PM PDT Station ID: [id number]
[2022-11-25 21:02] VITALS: BP 129/57; O2SAT 92
[2022-11-26] MEDS ORDERED: iohexoL-300 100 ML VIAL IVP ONE (01:45)
== END 2022-11-25 21:00 | disposition home or self-care (01) ==
LOC: ED 17:16
DX: R10.9 Unspecified abdominal pain (principal); K74.60 Unspecified cirrhosis of liver; Z98.890 Other specified postprocedural states
CPT/HCPCS: 36415; 80053; 81001; 81003; 83690; 85025; 87086; 99283; 99284

== ENCOUNTER 2022-12-17 09:07 | Outpatient (CLI) | payer MEDICARE ==
[~2022-12-17 09:07] MED LIST: GADOTERATE MEGLUMINE 10 MMOL/20 ML VIAL ONE
[2022-12-17] MEDS ORDERED: GADOTERATE MEGLUMINE 10 MMOL/20 ML VIAL IVP ONE (10:51)
--- NOTE | 2022-12-17 10:56 | MRI Report ---
PROCEDURE: ABDOMEN W/WO INDICATIONS: NONALCOHOLIC STEATOHEPATITIS CONTRAST: CLARISCAN 17.6ML TECHNIQUE: Coronal ultra fast SE, axial 2D spoiled GE in- and [id number]; axial breath-hold T2 fast SE. Dynam ic axial ultra fast GE during the administration of contrast; post-contrast coronal ultra fast GE or 2D spoiled GE with fat saturation from the hepatic dome to the iliac crests. Optional diffusion weig hted imaging and ADC may be performed. COMPARISON: CT 11/25/2022. FINDINGS: Image quality: Excellent. Lung bases and heart: Unremarkable. Liver: Cirrhosis. Confluent fibrosis located at the liver dome, corresponding to region of hypoattenu ation on the prior CT. Patent portal vasculature. Benign cyst at the liver dome. No observations of p robably or definitely HCC. Gallbladder and biliary tree: Surgically absent. No biliary dilation, accounting for post-cholecystec anne state. Spleen: Enlarged. Pancreas: No pancreatic ductal dilation. Adrenals: No adrenal nodule. Kidneys and ureters: No hydronephrosis. No renal cystic lesion which requires follow up. No solid mas s. Bowel and peritoneum: No bowel distension. No pathologic free fluid. Lymph nodes: No central or retroperitoneal adenopathy. Vessels: No infrarenal aortic aneurysm. Portosystemic collaterals are present. Bones: No aggressive osseous abnormality. Other: No significant ventral hernia. IMPRESSION: Cirrhosis with portal hypertension. Previously described region of hypoattenuation at the liver dome corresponds to fibrosis. No observat ions of probably or definitely HCC. Reviewed by: Roberto Leyva on 12/17/2022 10:55 AM PDT Approved by: Roberto Leyva on 12/17/2022 10:55 AM PDT Station ID: [id number]
== END 2022-12-17 09:08 | disposition home or self-care (01) ==
LOC: DI 09:07
PROVIDERS: ATTEND Internal Medicine
DX: K75.81 Nonalcoholic steatohepatitis (NASH) (principal); K74.60 Unspecified cirrhosis of liver; K76.6 Portal hypertension
CPT/HCPCS: 74183; A9575

== ENCOUNTER 2023-09-06 10:16 | Outpatient (CLI) | payer MEDICARE ==
[2023-09-06 10:33] LABS: BASOPHILS % (AUTO) 0.5 %; EOSINOPHILS # (AUTO) 0.1 10^3/uL (0.0-0.7); EOSINOPHILS % (AUTO) 2.5 %; HCT - HEMATOCRIT 34.1 % (42.0-52.0); HGB - HEMOGLOBIN 10.9 g/dL (14.0-18.0); LYMPHOCYTES % (AUTO) 27.6 %; MEAN CORPUSCULAR HEMOGLOBIN 32.2 pg (27.0-31.0); MEAN CORPUSCULAR VOLUME 100.6 fL (80.0-94.0); MEAN PLATELET VOLUME 12.7 fL (7.4-11.4); MONOCYTES # (AUTO) 0.2 10^3/uL (0.0-1.0); NEUTROPHILS # (AUTO) 2.3 10^3/uL (1.5-6.6); NEUTROPHILS % (AUTO) 62.9 %; PLT - PLATELET COUNT 108 10^3/uL (130-450); RED BLOOD COUNT 3.39 10^6/uL (4.70-6.10); RED CELL DISTRIBUTION WIDTH 14.6 % (12.0-15.0); WHITE BLOOD COUNT 3.7 x10^3/uL (4.8-10.8)
[2023-09-06 10:49] LABS: CREATININE,URINE 148.2 mg/dL; MICROALBUM/CREATININE RATIO,UR 7.4 ug/mg (<30.0); MICROALBUMIN,URINE 1.1 mg/dL
[2023-09-06 10:52] LABS: ALBUMIN/GLOBULIN RATIO 1.4 (1.0-2.2); ALKALINE PHOSPHATASE 156 IU/L (42-121); ALT ALANINE AMINOTRANSFERASE 27 IU/L (10-60); AST ASPARTATE AMINOTRANSFERASE 33 IU/L (10-42); BILIRUBIN,TOTAL 1.2 mg/dL (0.2-1.0); BUN - BLOOD UREA NITROGEN 17 mg/dL (6-20); CALCIUM 9.3 mg/dL (8.5-10.3); CARBON DIOXIDE - CO2 27 mmol/L (21-32); CHLORIDE 106 mmol/L (101-111); CHOL/HDL RATIO 1.8 (<5.0); CHOLESTEROL 129 mg/dL; CREATININE 1.1 mg/dL (0.6-1.3); GFR - MDRD 65 (>89); GLUCOSE 146 mg/dL (74-104); HDL CHOLESTEROL 71 mg/dL; LDL CHOLESTEROL,CALCULATED 46 mg/dL; LDL/HDL RATIO 0.6 (<3.6); SODIUM 137 mmol/L (135-145); TOTAL PROTEIN 6.9 g/dL (6.4-8.9); TRIGLYCERIDES 61 mg/dL; URIC ACID 2.9 mg/dL (4.4-7.6); VLDL CHOLESTEROL 12 mg/dL
[2023-09-06 13:42] LABS: ESTIMATED AVERAGE GLUCOSE 143 mg/dL (70-100); HEMOGLOBIN A1c% 6.6 % (4.27-6.07)
== END 2023-09-06 10:17 | disposition home or self-care (01) ==
LOC: LAB 10:16
PROVIDERS: ATTEND Internal Medicine
DX: E11.65 Type 2 diabetes mellitus with hyperglycemia (principal); K75.81 Nonalcoholic steatohepatitis (NASH); E78.5 Hyperlipidemia, unspecified; Z12.5 Encounter for screening for malignant neoplasm of prostate; M10.9 Gout, unspecified
CPT/HCPCS: 36415; 80053; 80061; 82043; 82570; 83036; 84550; 85025; G0103; 83721; 84153

== ENCOUNTER 2023-10-15 14:26 | Outpatient (CLI) | payer MEDICARE ==
--- NOTE | 2023-10-19 12:23 | XRAY Report ---
PROCEDURE: Abdomen 1 V INDICATIONS: NEPHROLITIASIS TECHNIQUE: 1 view of the abdomen were acquired. COMPARISON: 10/14/2022, 10/07/2021 FINDINGS: Surgical changes and devices: Upper quadrant surgical clips Bowel: No pneumoperitoneum. The bowel gas pattern is normal. Stool load within normal limits. Soft tissues: Previous described calcification projected over the upper pole left kidney has resolved . Persistent stippled calcification projecting over the lower pole left kidney. Fecal debris moderate present throughout. Bones: No suspicious bony abnormalities. IMPRESSION: Possible left lower pole nephrolithiasis. Reviewed by: Deon Lockett MD on 10/19/2023 11:22 AM AURA Approved by: Deon Lockett MD on 10/19/2023 11:22 AM AKDT Station ID: [id number]
== END 2023-10-15 14:27 | disposition home or self-care (01) ==
LOC: DI 14:26
PROVIDERS: ATTEND Physician Assistant Medical
DX: N20.0 Calculus of kidney (principal)